=== PATIENT | male | born 1970 | race Caucasian/White ===

== ENCOUNTER → 2016-10-27 | Day surgery (SDC) | payer BC ==
[~2016-10-27] MED LIST: ANUSOL-HC SUPP25 MG; NO MEDICATIONS
--- NOTE | ~2016-10-27 | OR ---
Unit #: [id number] #: [id number] Patient: ANDERS DOLAN [id number] [address] [address] [id number] MR#: [id number] NAME: ANDERS DOLAN ROOM: Date of Procedure: 10/27/2016 Admission Date: 10/27/2016 Surgeon: Wesley Butler M.D. : 1970 Attending Physician: Wesley Butler M.D. OPERATIVE REPORT PROCEDURE PERFORMED Sigmoidoscopy to 60 cm. INDICATIONS FOR PROCEDURE A 45-year-old gentleman with significant rectal and anal pain, undergoing sigmoidoscopy evaluation. MEDICATIONS Monitored anesthesia. POSTOPERATIVE FINDINGS 1. Colonic mucosa in the 60 cm was normal. 2. Small internal hemorrhoids. PLAN Symptomatic treatment. DESCRIPTION OF PROCEDURE The patient was explained of the procedure, risks, and benefits along with the risks and benefits of anesthesia. He was brought to the endoscopy room. Rectal exam was done, which was normal. Colonoscope was lubricated, passed up to 60 cm. Colonic mucosa was normal. I retroflexed in the rectum, small hemorrhoids seen. Scope was gently pulled out. He tolerated it well. Dictated by... Nicole Yancey/amina TD: 11/15/2016 11:44 JOB #: [id number] Unit #: [id number] #: [id number] Patient: ANDERS DOLAN OPERATIVE REPORT Page 1 of 1 X Wesley Butler MD X PROCEDURE OPERATIVE NOTE
== END | disposition home or self-care (01) ==
LOC: COPS 12:30
DX: K64.8 Other hemorrhoids (principal); Z98.890 Other specified postprocedural states
CPT/HCPCS: J3010